=== PATIENT | male | born 1990 | race Caucasian/White ===

== ENCOUNTER 2017-07-31 14:58 | Emergency (ER) | payer MEDICAID, OTHER ==
[2017-07-31 14:58] VITALS: BMI 29.5
[2017-07-31 15:07] VITALS: BP 133/82; PULSE 93; RESP 16; TEMP 98.3; O2SAT 97
--- NOTE | 2017-07-31 15:46 | ED PDOC ---
Lower Extremity Pain/Injury Time Seen by Provider: 07/31/17 15:20 Chief Complaint (Nursing): Lower Extremity Problem/Injury Chief Complaint (Provider): Lower extremity problem History Per: Patient History/Exam Limitations: no limitations Onset/Duration Of Symptoms: Days (x3) Current Symptoms Are (Timing): Still Present Pain Scale Rating Of: 10 Additional Complaint(s): Jarek Gilmore is a 27 year old male, with a past medical history asthma, hypertension, and hypercholesterolemia, who presents to the emergency department complaining of right foot pain associated with an ingrown toe nail onset for 3 days. Patient reports he has had pes planus since child, and has difficulty walking. He states recently walking has become unbearable. He denies any fever, chills, nausea or vomit. No further medical complaints. PMD: None provided. Past Medical History Reviewed: Historical Data, Nursing Documentation, Vital Signs Vital Signs: Last Vital Signs Temp 98.3 F 07/31/17 15:05 Pulse 93 H 07/31/17 15:05 Resp 16 07/31/17 15:05 BP 133/82 07/31/17 15:05 Pulse Ox 97 07/31/17 15:05 - Medical History PMH: Asthma, HTN, Hypercholesterolemia Denies: Depression, Diabetes, Hepatitis, HIV, Seizures, Sexually Transmitted Disease - Surgical History Surgical History: Appendectomy - Family History Family History: States: Unknown Family Hx - Immunization History Hx Tetanus Toxoid Vaccination: No Hx Influenza Vaccination: No Hx Pneumococcal Vaccination: No - Home Medications Home Medications: Ambulatory Orders Medication Instructions Recorded Albuterol 0.083% [Albuterol 3 ml IH Q6 05/27/12 Sulfate 3 Ml] Albuterol Sulfate [Albuterol Hfa] 0.09 mg IH Q4 PRN 05/27/12 Sulfamethoxazole/Trimethopri 1 tab PO BID #20 tab 03/15/14 [Bactrim Ds 800 mg-160 mg] Clindamycin [Cleocin] 300 mg PO Q8 #21 cap 11/25/14 traMADol/Acetaminophen [Ultracet 1 tab PO Q6 #12 tab 11/25/14 37.5/325 mg] Sulfamethoxazole/Trimethopri 1 tab PO BID #14 tab 09/16/15 [Bactrim Ds 800 mg-160 mg] Tramadol HCl [Ultram] 50 mg PO Q6 #12 tab 09/16/15 Ibuprofen [Motrin Tab] 800 mg PO Q8 PRN #30 tab 10/16/15 oxyCODONE/Acetaminophen [Percocet 1 ea PO Q6 PRN #30 tab 10/16/15 5/325 mg Tab] Acyclovir 800 mg PO 5XD #35 tab 10/21/15 Nabumetone [Relafen] 500 mg PO BID #20 tab 10/21/15 Meloxicam [Mobic] 7.5 mg PO BID PRN #15 tablet 12/26/15 Nabumetone [Relafen] 500 mg PO BID #20 tab 01/12/16 Meloxicam [Mobic] 7.5 mg PO BID #15 tablet 01/22/16 Ibuprofen [Motrin] 400 mg PO Q6 #30 tab 07/31/17 - Allergies Allergies/Adverse Reactions: Allergies Allergy/AdvReac Type Severity Reaction Status Date / Time amoxicillin Allergy RASH Verified 01/22/16 11:41 Penicillins Allergy RASH Verified 01/22/16 11:41 Review of Systems ROS Statement: Except As Marked, All Systems Reviewed And Found Negative Constitutional: Negative for: Fever, Chills Gastrointestinal: Negative for: Nausea, Vomiting Musculoskeletal: Positive for: Foot Pain (right foot swelling. Ingrown toe nail to right foot 1st digit) Physical Exam - Reviewed Nursing Documentation Reviewed: Yes Vital Signs Reviewed: Yes - Physical Exam Appears: Positive for: Non-toxic Head Exam: Positive for: ATRAUMATIC, NORMAL INSPECTION, NORMOCEPHALIC Skin: Positive for: Normal Color, Warm, Dry Eye Exam: Positive for: Normal appearance Neck: Positive for: Normal, Painless ROM, Supple Respiratory: Negative for: Respiratory Distress Extremity: Positive for: Tenderness (swelling, and erythema to right foot), Swelling (to dorsum of foot), Other (Flat foot noted. Erythema on right foot 1st digit near nail. Decreased locomotion of foot.) Neurologic/Psych: Positive for: Alert, Oriented - ECG O2 Sat by Pulse Oximetry: 97 (RA) Pulse Ox Interpretation: Normal Medical Decision Making Medical Decision Making: Initial Impression: Pes planus Initial Plan: --Foot 3 views routine [RAD] --reevaluation 1639 FINDINGS: BONES: A 2 mm radiodensity seen at the medial margins of the interphalangeal of the great toe potentially reflecting of possible asymmetry ossicle or old avulsion or chip fracture. No cortical defect is appreciated that would correspond to this finding and is not felt to represent an acute chip or avulsion fracture. Clinically correlate. No definite additional potential fracture identified grossly. Local soft tissues also do not appear edematous. There is a moderate hallux valgus deformity. Mild to moderate plantar calcaneal spurs identified. JOINTS: Normal. SOFT TISSUES: Normal. OTHER FINDINGS: None. IMPRESSION: Probable tiny sensory ossicle related to the interphalangeal of the great toe. A chronic chip or avulsion fracture is a possibility as well. Acute fracture is not favored. Clinically correlate here. Moderate hallux valgus deformity. -Podiatry suggested patient will most likely need surgical consultation and will see him in the office tomorrow. Scribe Attestation: Documented by James Morrow, acting as a scribe for Lyric SOOD. Provider Scribe Attestation: All medical record entries made by the Scribe were at my direction and personally dictated by me. I have reviewed the chart and agree that the record accurately reflects my personal performance of the history, physical exam, medical decision making, and the department course for this patient. I have also personally directed, reviewed, and agree with the discharge instructions and disposition. Disposition - Clinical Impression Clinical Impression: Pes planus, Ingrown toenail - Patient ED Disposition Is Patient to be Admitted: No Counseled Patient/Family Regarding: Need For Followup - Disposition Referrals: Podiatry Clinic [Outside] Disposition: Routine/Home Disposition Time: 17:13 Condition: STABLE Prescriptions: Ibuprofen [Motrin] 400 mg PO Q6 #30 tab Instructions: Arthralgia (ED) Forms: [employer] (Swazi)
--- NOTE | 2017-07-31 16:41 | RAD ---
PROCEDURE: Right Foot Radiographs. HISTORY: foot pain COMPARISON: None. FINDINGS: BONES: A 2 mm radiodensity seen at the medial margins of the interphalangeal of the great toe potentially reflecting of possible asymmetry ossicle or old avulsion or chip fracture. No cortical defect is appreciated that would correspond to this finding and is not felt to represent an acute chip or avulsion fracture. Clinically correlate. No definite additional potential fracture identified grossly. Local soft tissues also do not appear edematous. There is a moderate hallux valgus deformity. Mild to moderate plantar calcaneal spurs identified. JOINTS: Normal. SOFT TISSUES: Normal. OTHER FINDINGS: None. IMPRESSION: Probable tiny sensory ossicle related to the interphalangeal of the great toe. A chronic chip or avulsion fracture is a possibility as well. Acute fracture is not favored. Clinically correlate here. Moderate hallux valgus deformity.
--- NOTE | 2017-07-31 17:23 | CP.PCM.CON ---
History of Present Illness - History of Present Illness History of Present Illness: 27 y/o male with no significant PMHx seen at bedside in ED complaining of pain in his right foot. Patient denies of any trauma to his foot or ankle. Patient states that he has been having this pain for years now. Patient states that he has been made aware by his manager documentation that he has a bad flatfoot. Patient states that he has taken many medications and ibuprofen to alleviate the pain but it has not helped him. Patient denies of going to podiatry clinic for this issue. Patient states that his pain has progressively gotten worst. Patient rates his pain as 8-9/10 on VAS and states that it is starting to interfere with his daily activities. Patient also states that his right big toe nail is ingrowing and it is causing him pain as well. Patient states that he has not done anything for the toe nail pain. Patient denies of any other pedal complains at this time. PMHx: Denies PSHx: Appendectomy Allergies: Penicillins SHx: 1 pack every 5 days smoking history, Denies drinking or any other illicit drug usage Review of Systems - Constitutional Constitutional: As Per HPI Past Patient History - Tetanus Immunizations Tetanus Immunization: Up to Date - Past Social History Smoking Status: Light Smoker < 10 Cigarettes Daily - CARDIAC Hx Hypercholesterolemia: Yes Hx Hypertension: Yes - PULMONARY Hx Asthma: Yes - NEUROLOGICAL Hx Seizures: No - HEMATOLOGICAL/ONCOLOGICAL Hx Human Immunodeficiency Virus (HIV): No - INTEGUMENTARY Other/Comment: Skin lesion right foot - GENITOURINARY/GYNECOLOGICAL Hx Sexually Transmitted Disorders: No - PSYCHIATRIC Hx Depression: No - SURGICAL HISTORY Hx Appendectomy: Yes - ANESTHESIA Hx Anesthesia: Yes Hx Anesthesia Reactions: No Meds Home Medications: Home Medication List Medication Instructions Recorded Confirmed Type Ibuprofen [Motrin] 400 mg PO Q6 #30 tab 07/31/17 Rx Allergies/Adverse Reactions: Allergies Allergy/AdvReac Type Severity Reaction Status Date / Time amoxicillin Allergy RASH Verified 01/22/16 11:41 Penicillins Allergy RASH Verified 01/22/16 11:41 Physical Exam - Constitutional Appears: Well, Non-toxic, No Acute Distress - Extremities Exam Additional comments: Bilateral LE exam: VASC: DP/PT pulses are palpable 2/4 bilaterally, 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, Temp gradient: warm to cool from proximal to distal, no pitting or non-pitting edema noted DERM: mild erythema with mild edema noted on the medial aspect of the left hallucal nail with no active drainage, ingrowing of the nail plate on nail bed noted on left hallux, no open lesions, no clinical suspicion of active infection NEURO: Protective sensation grossly intact ORTHO: Pain on palpation along the course of the posterior tibial tendon proximal to medial malleolus as well as to the insertion on the left foot, pain on palpation superior to the sinus tarsi, tenderness on the achilles tendon on palpation proximal to its insertion, pain on active and passive ROM at the ankle joint during dorsiflexion and inversion superior to sinus tarsi, Plantar medial arch appears to be severely collapsed - Neurological Exam Neurological exam: Alert, Oriented x3 - Psychiatric Exam Psychiatric exam: Normal Affect, Normal Mood Results - Vital Signs Recent Vital Signs: Last Vital Signs Temp 98.3 F 07/31/17 15:05 Pulse 93 H 07/31/17 15:05 Resp 16 07/31/17 15:05 BP 133/82 07/31/17 15:05 Pulse Ox 97 07/31/17 17:13 Assessment & Plan - Assessment and Plan (Free Text) Assessment: 27 y/o male seen at bedside in ED for 1). Pes planovalgus deformity 2). Ingrowing nail on the left hallux Plan: Patient seen and evaluated at bedside in ED Patient discussed in details with attending Dr. 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
== END 2017-07-31 17:27 | disposition home or self-care (01) ==
LOC: H.ER 14:58
DX: Q66.6 Other congenital valgus deformities of feet (principal); L60.0 Ingrowing nail

== ENCOUNTER 2017-10-06 21:12 | Emergency (ER) | payer MEDICAID, OTHER ==
[2017-10-06 21:13] VITALS: BMI 29.5
[2017-10-06 21:19] VITALS: BP 149/85; PULSE 89; RESP 18; TEMP 98.7; O2SAT 98
--- NOTE | 2017-10-06 21:36 | ED PDOC ---
Lower Extremity Pain/Injury Chief Complaint (Nursing): Lower Extremity Problem/Injury Chief Complaint (Provider): Left Lower Extremity Pain History Per: Patient Onset/Duration Of Symptoms: Days (x 1) Current Symptoms Are (Timing): Still Present Additional Complaint(s): Jarek is a 27 year male who presents to the Emergency Department complaining of left leg pain since yesterday. Patient states he tripped and may have twisted his knee. Feels pressure and sharp pain when he bends his left leg. States he went to a different medical center earlier today, but decided to come here. Patient states that pain was worse yesterday. Claims he put ice on it and noticed the swelling went down. Admits to taking one Tramadol today. PMD: Provider TBD Past Medical History Vital Signs: Last Vital Signs Temp 98.7 F 10/06/17 21:16 Pulse 89 10/06/17 21:16 Resp 18 10/06/17 21:16 BP 149/85 10/06/17 21:16 Pulse Ox 98 10/06/17 21:16 - Medical History PMH: Asthma, HTN, Hypercholesterolemia Denies: Depression, Diabetes, Hepatitis, HIV, Seizures, Sexually Transmitted Disease - Surgical History Surgical History: Appendectomy - Family History Family History: States: Unknown Family Hx - Immunization History Hx Tetanus Toxoid Vaccination: No Hx Influenza Vaccination: No Hx Pneumococcal Vaccination: No - Home Medications Home Medications: Ambulatory Orders Medication Instructions Recorded Albuterol 0.083% [Albuterol 3 ml IH Q6 05/27/12 Sulfate 3 Ml] Albuterol Sulfate [Albuterol Hfa] 0.09 mg IH Q4 PRN 05/27/12 Sulfamethoxazole/Trimethopri 1 tab PO BID #20 tab 03/15/14 [Bactrim Ds 800 mg-160 mg] Clindamycin [Cleocin] 300 mg PO Q8 #21 cap 11/25/14 traMADol/Acetaminophen [Ultracet 1 tab PO Q6 #12 tab 11/25/14 37.5/325 mg] Sulfamethoxazole/Trimethopri 1 tab PO BID #14 tab 09/16/15 [Bactrim Ds 800 mg-160 mg] Tramadol HCl [Ultram] 50 mg PO Q6 #12 tab 09/16/15 Ibuprofen [Motrin Tab] 800 mg PO Q8 PRN #30 tab 10/16/15 oxyCODONE/Acetaminophen [Percocet 1 ea PO Q6 PRN #30 tab 10/16/15 5/325 mg Tab] Acyclovir 800 mg PO 5XD #35 tab 10/21/15 Nabumetone [Relafen] 500 mg PO BID #20 tab 10/21/15 Meloxicam [Mobic] 7.5 mg PO BID PRN #15 tablet 12/26/15 Nabumetone [Relafen] 500 mg PO BID #20 tab 01/12/16 Meloxicam [Mobic] 7.5 mg PO BID #15 tablet 01/22/16 Ibuprofen [Motrin] 400 mg PO Q6 #30 tab 07/31/17 Meloxicam 7.5 mg PO BID PRN #14 tablet 10/06/17 - Allergies Allergies/Adverse Reactions: Allergies Allergy/AdvReac Type Severity Reaction Status Date / Time amoxicillin Allergy RASH Verified 01/22/16 11:41 Penicillins Allergy RASH Verified 01/22/16 11:41 Review of Systems ROS Statement: Except As Marked, All Systems Reviewed And Found Negative Musculoskeletal: Positive for: Other (Left Knee Pain) Physical Exam - Reviewed Nursing Documentation Reviewed: Yes Vital Signs Reviewed: Yes - Physical Exam Appears: Positive for: Well, Non-toxic, No Acute Distress Head Exam: Positive for: ATRAUMATIC, NORMAL INSPECTION, NORMOCEPHALIC Skin: Positive for: Normal Color Eye Exam: Positive for: Normal appearance Respiratory: Positive for: Normal Breath Sounds. Negative for: Respiratory Distress Extremity: Positive for: Tenderness (Lateral aspect left knee). Negative for: Other (no effusion, no obvious bony tenderness) Neurologic/Psych: Positive for: Alert, Oriented - ECG O2 Sat by Pulse Oximetry: 98 (RA) Pulse Ox Interpretation: Normal - Progress ED Course And Treament: knee xry: no acute fx njrx notes percocet #60 prescribed 09/27/2017 Toradol 60mg IM x 1 dose in ED Patient given knee immobilizer and crutches. Medical Decision Making Medical Decision Making: Time: 21:25 Plan: - Left Knee X-Ray - Toradol 50 mg Scribe Attestation: Documented by Elliot Phoenix, acting as a scribe for Michael Prakash PA-C Provider Scribe Attestation: All medical record entries made by the Scribe were at my direction and personally dictated by me. I have reviewed the chart and agree that the record accurately reflects my personal performance of the history, physical exam, medical decision making, and the department course for this patient. I have also personally directed, reviewed, and agree with the discharge instructions and disposition. Disposition - Clinical Impression Clinical Impression: Knee injury - Patient ED Disposition Is Patient to be Admitted: No - Disposition Referrals: Provider YONG, [Non-Staff] - Seymour Ceja MD [Staff Provider] - [facility] [Outside] Disposition: Routine/Home Disposition Time: 22:10 Condition: FAIR Prescriptions: Meloxicam 7.5 mg PO BID PRN #14 tablet PRN Reason: Pain, Moderate (4-7) Instructions: Knee Pain (ED) Forms: [employer] (French), [facility] ED School/Work Excuse
--- NOTE | 2017-10-07 07:23 | RAD ---
HISTORY: knee injury COMPARISON: No prior FINDINGS: BONES: Normal. No fracture. JOINTS: Normal. No osteoarthritis. SOFT TISSUE: Normal. OTHER FINDINGS: None . IMPRESSION: Normal Bone Xray.
== END 2017-10-06 22:23 | disposition home or self-care (01) ==
LOC: SUPCPDRO 21:12 → H.ER 21:12
DX: S89.92XA Unspecified injury of left lower leg, initial encounter (principal); W19.XXXA Unspecified fall, initial encounter; Y92.89 Other specified places as the place of occurrence of the external cause; E78.00 Pure hypercholesterolemia, unspecified; I10 Essential (primary) hypertension; J45.909 Unspecified asthma, uncomplicated; Z88.0 Allergy status to penicillin
CPT/HCPCS: 73560; 96372; 99283; J1885

== ENCOUNTER 2018-05-29 13:54 | Emergency (ER) | payer MEDICAID, OTHER ==
[2018-05-29 13:55] VITALS: BMI 29.5
[2018-05-29 14:18] VITALS: BP 128/75; PULSE 78; RESP 16; TEMP 98.1; O2SAT 100
--- NOTE | 2018-05-29 14:34 | ED PDOC ---
Upper Extremity Pain/Injury Time Seen by Provider: 05/29/18 14:25 Chief Complaint (Nursing): Upper Extremity Problem/Injury Chief Complaint (Provider): Right Shoulder Pain History Per: Patient History/Exam Limitations: no limitations Onset/Duration Of Symptoms: Days (x7) Current Symptoms Are (Timing): Still Present Additional Complaint(s): 27 year old right hand dominant male presents to the emergency department for evaluation of right shoulder pain. Patient was seen at [facility] on 05/23/18 after injuring right shoulder and was told by ED provider that he has a fracture. He was given rx percocet and states that he is out of meds and shoulder still hurts. He has appt next week with ortho but states he came to ED today due to worsening pain. PMD: Dr. Soares Past Medical History Reviewed: Historical Data, Nursing Documentation, Vital Signs Vital Signs: Last Vital Signs Temp 98.1 F 05/29/18 14:15 Pulse 78 05/29/18 14:15 Resp 16 05/29/18 14:15 BP 128/75 05/29/18 14:15 Pulse Ox 100 05/29/18 14:15 - Medical History PMH: Asthma, HTN, Hypercholesterolemia - Surgical History Surgical History: Appendectomy - Family History Family History: States: No Known Family Hx - Living Arrangements Living Arrangements: With Family - Social History Current smoker - smoking cessation education provided: Yes Alcohol: None Drugs: Denies - Home Medications Home Medications: Ambulatory Orders Medication Instructions Recorded Escitalopram [Lexapro] 20 mg PO DAILY #30 tab 03/28/18 Gabapentin [Neurontin] 300 mg PO BID #60 cap 03/28/18 Mirtazapine [Remeron] 30 mg PO HS #30 tab 03/28/18 traZODone [Desyrel] 50 mg PO HS PRN #30 tab 03/28/18 Albuterol HFA [Ventolin HFA 90 1 puff IH PRN PRN 05/23/18 mcg/actuation (8 g)] oxyCODONE/Acetaminophen [Percocet 1 ea PO QID #12 tab 05/23/18 5/325 mg Tab] Ibuprofen [Motrin Tab] 800 mg PO Q8 PRN #20 tab 05/29/18 - Allergies Allergies/Adverse Reactions: Allergies Allergy/AdvReac Type Severity Reaction Status Date / Time amoxicillin Allergy RASH Verified 05/23/18 07:42 Penicillins Allergy RASH Verified 05/23/18 07:42 Review of Systems ROS Statement: Except As Marked, All Systems Reviewed And Found Negative Musculoskeletal: Positive for: Shoulder Pain (right) Physical Exam - Reviewed Nursing Documentation Reviewed: Yes Vital Signs Reviewed: Yes - Physical Exam Appears: Positive for: Well, Non-toxic, No Acute Distress Head Exam: Positive for: ATRAUMATIC, NORMOCEPHALIC Skin: Positive for: Normal Color. Negative for: Rash Eye Exam: Positive for: Normal appearance Neck: Positive for: Normal Extremity: Positive for: Tenderness (diffuse to anterior aspect of right shoulder), Other (right shoulder demonstrates no obvious bony deformity). Negative for: Normal ROM (decreased ROM to right shoulder) Neurologic/Psych: Positive for: Alert, Oriented - ECG O2 Sat by Pulse Oximetry: 100 (RA) Pulse Ox Interpretation: Normal - Other Rad Right shoulder x-ray X-Ray: Interpreted by Me, Viewed By Me X-Ray Interpretation: no fx, no dis Medical Decision Making Medical Decision Making: Time: 14:34 Initial Impression: 27 year old right handed male with right shoulder pain Initial Plan: --Toradol 30 mg IM --Right shoulder XR X-ray from today demonstrates no acute fracture dislocation. X-ray taken on May 23 at [facility] was read officially as negative for fracture dislocation. Patient given sling and prescription for Motrin. Advised to follow up as soon as possible. Scribe Attestation: Documented by Geraldine Lund, acting as a scribe for Janell Dickson PA-C. Provider Scribe Attestation: All medical record entries made by the Scribe were at my direction and personally dictated by me. I have reviewed the chart and agree that the record accurately reflects my personal performance of the history, physical exam, medical decision making, and the department course for this patient. I have also personally directed, reviewed, and agree with the discharge instructions and disposition. Procedures - Splinting Location: right arm Pre-Made Type: sling Pre-Proc Neuro Vasc Exam: normal Post-Proc Neuro Vasc Exam: normal Disposition - Clinical Impression Clinical Impression: Shoulder pain - Patient ED Disposition Is Patient to be Admitted: No Counseled Patient/Family Regarding: Studies Performed, Diagnosis, Need For Followup, Rx Given - Disposition Referrals: Mary Kate Muñoz MD [Staff Provider] - Disposition: Routine/Home Disposition Time: 15:15 Condition: STABLE Additional Instructions: Ice, rest and elevate affected area. Take rx meds as directed as needed for pain. Follow up [facility] with orthopedist. Prescriptions: Ibuprofen [Motrin Tab] 800 mg PO Q8 PRN #20 tab PRN Reason: Pain, Moderate (4-7) Instructions: Shoulder Pain (DC) Forms: [employer] (Vietnamese)
--- NOTE | 2018-05-29 15:11 | RAD ---
Date of service: 05/29/2018 PROCEDURE: Radiographs of the Right Shoulder HISTORY: trauma COMPARISON: No prior. FINDINGS: BONES: Normal. No fracture. JOINTS: Normal. Glenohumeral and acromioclavicular joints preserved. No osteoarthritis. SOFT TISSUES: Normal. OTHER FINDINGS: None. IMPRESSION: Normal radiographs of the right shoulder. Concordant results with the preliminary interpretation rendered by the emergency department physician procedure.
== END 2018-05-29 15:24 | disposition home or self-care (01) ==
LOC: H.ER 13:54
DX: M25.511 Pain in right shoulder (principal); E78.00 Pure hypercholesterolemia, unspecified; I10 Essential (primary) hypertension; Z88.0 Allergy status to penicillin
CPT/HCPCS: 73030; 96372; 99282; J1885

== ENCOUNTER 2018-07-16 00:25 | Emergency (ER) | payer MEDICAID, OTHER ==
[2018-07-16 00:26] VITALS: BMI 29.5
[2018-07-16 00:49] VITALS: O2SAT 99
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
[2018-07-16] MEDS ORDERED: Albuterol-Ipratrop 3 mg / 0.5 (3 ml) UD IH STA (03:05)
[2018-07-16] MEDS ORDERED: Albuterol-Ipratrop 3 mg / 0.5 (3 ml) UD ONE (03:08)
[2018-07-16 04:08] VITALS: BP 118/79; PULSE 91; RESP 18; TEMP 98.4
== END 2018-07-16 04:07 | disposition home or self-care (01) ==
LOC: H.ER 00:25
DX: Z48.01 Encounter for change or removal of surgical wound dressing (principal); I10 Essential (primary) hypertension; J45.909 Unspecified asthma, uncomplicated; Z88.0 Allergy status to penicillin; E78.00 Pure hypercholesterolemia, unspecified
CPT/HCPCS: 96372; 99282; J1885